=== PATIENT | female | born 1990 | race African-American/Black ===

== ENCOUNTER 2016-11-26 16:22 | Emergency (ER) | payer MEDICAID, OTHER ==
[~2016-11-26] VITALS: Ht 172.7 cm; Wt 77.6 kg
[~2016-11-26 16:22] MED LIST: IBUP-51 PO
--- NOTE | 2016-11-26 16:40 | NUR ---
DR. QUINTERO IS AT THE BEDSIDE.
--- NOTE | 2016-11-26 16:48 | NUR ---
PT STATED THAT SHE GAVE A URINE SAMPLE UPON ADMISSION TO ER.
--- NOTE | 2016-11-26 16:50 | NUR ---
CALLED LUMITE INJECTOR. NOT ABLE TO GET ANYONE. CALLED DRUPAL WEB DEVELOPER. LUMITE INJECTOR LEAVES AT 1600. DR. QUINTERO IS AWARE.
--- NOTE | 2016-11-26 16:54 | NUR ---
WEAVE DEFECT CHARTING CLERK NOTIFIED RE: BLOOD DRAW.
--- NOTE | 2016-11-26 16:56 | NUR ---
CALLED RADIOLOGY RE: US. US TECH AWARE.
[2016-11-26 18:13] LABS: BASOPHILS % (AUTO) 0.2 % (0.0-2.0); EOSINOPHILS # (AUTO) 0.1 /CMM (0.0-0.7); EOSINOPHILS % (AUTO) 1.1 % (0.0-6.0); HEMATOCRIT 32 % (33-45); HEMOGLOBIN 11.1 g/dL (11.5-14.8); LYMPHOCYTES % (AUTO) 25.3 % (20.0-44.0); MEAN CORPUSCULAR HEMOGLOBIN 32 PG (26.0-33.0); MEAN CORPUSCULAR HGB CONC 35 g/dl (31.0-36.0); MEAN CORPUSCULAR VOLUME 92 fL (82-100); MONOCYTES % (AUTO) 12.3 % (2.0-12.0); NEUTROPHILS # (AUTO) 4.8 /CMM (1.8-8.9); NEUTROPHILS % (AUTO) 61.1 % (43.0-81.0); PLATELET COUNT (AUTO) 177 /CMM (150-450); RDW COEFFICIENT OF VARIATION 12.3 (11.5-15.0); RED BLOOD CELL COUNT(AUTO) 3.49 MIL/uL (4.0-5.2); WHITE BLOOD COUNT (AUTO) 7.9 K/uL (4.3-11.0)
[2016-11-26 18:23] LABS: CALCIUM, SERUM 8.8 mg/dL (8.5-10.1); CREATININE 0.7 mg/dL (0.6-1.3); POTASSIUM 3.2 mmol/L (3.5-5.1)
--- NOTE | 2016-11-26 18:46 | NUR ---
URINE SAMPLE SENT TO LAB.
[2016-11-26 18:49] LABS: APPEARANCE,URINE Clear (CLEAR); BILIRUBIN,URINE Negative (NEGATIVE); BLOOD, URINE Negative Ery/uL (NEGATIVE); COLOR,URINE Yellow (YELLOW); KETONES,URINE Negative (NEGATIVE); LEUKOCYTE ESTERASE ,URINE Negative (NEGATIVE); NITRITE, URINE Negative (NEGATIVE); PH,URINE 6.5 (5.0-8.0); PROTEIN,URINE Negative (NEGATIVE); UGLUCOSE Negative (NEGATIVE)
[2016-11-26] MEDS ORDERED: POTASSIUM CHLORIDE 20 MEQ TAB.PRT.SR PO ONE ×2 (19:00→19:08)
--- NOTE | 2016-11-26 19:19 | NUR ---
Patient discharged to home in stable condition. Written and verbal after care instructions given. Patient verbalizes understanding of instruction. PT REC'D A COPY OF ALL LABS AND US FINDINGS. PT AMBULATED OUT WITH A STEADY GAIT. VSS.
[2016-11-26 19:21] VITALS: BP 121/65
== END 2016-11-26 19:27 | disposition home or self-care (01) ==
LOC: ER 16:25
DX: O99.011 Anemia complicating pregnancy, first trimester (principal); O99.281 Endocrine, nutritional and metabolic diseases complicating pregnancy, first trimester; E87.6 Hypokalemia; Z88.0 Allergy status to penicillin; Z3A.01 Less than 8 weeks gestation of pregnancy; Z59.0 Homelessness
CPT/HCPCS: 36415; 76805; 80048; 81001; 85025; 99285; A4606; Z7610; 81000-TC

== ENCOUNTER 2017-01-25 05:15 | Emergency (ER) | payer MEDICAID ==
[~2017-01-25] VITALS: Ht 165.1 cm; Wt 77.1 kg
--- NOTE | 2017-01-25 05:20 | NUR ---
To bed 21 a 26 yo female bib boyfriend and reported, "felt gush of fluid at 0245 with contractions now every 5-10mins." Patient is aaox3, vss. Breathing even and unlabored. First at 33 weeks aog per last poli results. Per patient, she doesnt have a regular OB but has been taking vitamins. Placed patient on vital signs monitoring. Labor watch done. Instructed patient proper breathing tecniques with contractions. Gowned. Initiated fidencio fairchild. Dr Babcock at bedside for eval.
--- NOTE | 2017-01-25 05:25 | NUR ---
PER DR. JARA, PT IS NOT 1 CM DILATED .
--- NOTE | 2017-01-25 05:48 | NUR ---
pt accepted by Dr Tabby Vega [facility] L&D
--- NOTE | 2017-01-25 05:50 | NUR ---
[facility] called for trasnport. ETA 20 min.
[2017-01-25 06:18] VITALS: BP 133/98
--- NOTE | 2017-01-25 06:29 | NUR ---
Report given to paramedics for transport. VSS. Patient remained aaox3. LFA g18 IV intact, no s/s of infiltration/infection.
== END 2017-01-25 06:33 | disposition short-term general hospital (02) ==
LOC: ER 05:18
DX: O42.913 Preterm premature rupture of membranes, unspecified as to length of time between rupture and onset of labor, third trimester (principal); Z59.0 Homelessness; Z88.0 Allergy status to penicillin; Z3A.00 Weeks of gestation of pregnancy not specified
CPT/HCPCS: 99285; A4606; Z7610

== ENCOUNTER 2018-01-15 19:49 | Emergency (ER) | payer MEDICAID, OTHER ==
[~2018-01-15] VITALS: Ht 170.2 cm; Wt 64.4 kg
[2018-01-15 20:15] VITALS: BP 116/71
== END 2018-01-15 21:03 | disposition home or self-care (01) ==
LOC: ER 19:55
DX: Z32.01 Encounter for pregnancy test, result positive (principal); Z88.0 Allergy status to penicillin; Z59.0 Homelessness
CPT/HCPCS: 84703-TC; A4606; Z7610

== ENCOUNTER 2018-02-05 22:01 | Emergency (ER) | payer OTHER ==
[~2018-02-05] VITALS: Ht 172.7 cm; Wt 63.5 kg
--- NOTE | 2018-02-05 22:33 | NUR ---
PT TO ER BED
--- NOTE | 2018-02-05 23:05 | NUR ---
BB SELF FROM HOME C/O SPOTTING X 2 DAYS. PT STATES SHE IS 14 WKS AND "NEEDS A ULTRASOUND". PT DENIES N/V/D. -DYSURIA. PT IS AAOX4. VSS. SKIN WNL. RESP EVEN AND UNLABORED. NO S/S OF ACUTE DISTRESS NOTED. PT PLACED ON MONITOR AND POX. PT SAFETY AND COMFORT MEASURES IN PLACE. AWAITING MD FOR EVAL.
--- NOTE | 2018-02-05 23:22 | NUR ---
PT TO RESTROOM TO GIVE URINE SAMPLE.
[2018-02-05 23:53] LABS: BASOPHILS % (AUTO) 0.4 % (0.0-2.0); EOSINOPHILS % (AUTO) 1.4 % (0.0-6.0); HEMATOCRIT 34 % (33-45); HEMOGLOBIN 11.9 g/dL (11.5-14.8); LYMPHOCYTES % (AUTO) 21.3 % (20.0-44.0); MEAN CORPUSCULAR HEMOGLOBIN 32 PG (26.0-33.0); MEAN CORPUSCULAR HGB CONC 35 g/dl (31.0-36.0); MEAN CORPUSCULAR VOLUME 92 fL (82-100); MONOCYTES # (AUTO) 0.7 /CMM (0.1-1.30); NEUTROPHILS # (AUTO) 6.3 /CMM (1.8-8.9); NEUTROPHILS % (AUTO) 68.9 % (43.0-81.0); PLATELET COUNT (AUTO) 263 /CMM (150-450); RDW COEFFICIENT OF VARIATION 12.6 (11.5-15.0); RED BLOOD CELL COUNT(AUTO) 3.75 MIL/uL (4.0-5.2); WHITE BLOOD COUNT (AUTO) 9.2 K/uL (4.3-11.0)
[2018-02-05 23:58] LABS: APPEARANCE,URINE CLEAR (CLEAR); BILIRUBIN,URINE NEGATIVE (NEGATIVE); BLOOD, URINE 2+ Ery/uL (NEGATIVE); COLOR,URINE YELLOW (YELLOW); KETONES,URINE NEGATIVE (NEGATIVE); LEUKOCYTE ESTERASE ,URINE TRACE (NEGATIVE); NITRITE, URINE NEGATIVE (NEGATIVE); PH,URINE 6.5 (5.0-8.0); PROTEIN,URINE NEGATIVE (NEGATIVE); UGLUCOSE NEGATIVE (NEGATIVE)
[2018-02-06 00:28] LABS: BACTERIA,URINE Few /HPF (None Seen); MUCUS,URINE Moderate /LPF (None Seen); SQUAMOUS EPITHELIAL CELL,UR Moderate /HPF (None Seen)
--- NOTE | 2018-02-06 01:35 | NUR ---
RECEIVED RHOGAM FROM LAB. MEDICATED PT WITH FULL DOSE OF RHOGAM SYRINGE PER MD'S ORDERS. WT Addendum: 02/06/18 at 0242 by REANNA RECEIVED RHOGAM FROM LAB. MEDICATED PT WITH FULL DOSE (300MCG) OF RHOGAM SYRINGE PER MD'S ORDERS. WT. VSS UPON ADMINISTRATION OF MEDICATION
--- NOTE | 2018-02-06 02:18 | NUR ---
Patient discharged to home in stable condition. Written and verbal after care instructions given. Patient verbalizes understanding of instruction. VSS UPON DISCHARGE
[2018-02-06 02:19] VITALS: BP 140/92
== END 2018-02-06 02:21 | disposition home or self-care (01) ==
LOC: ER 22:05
DX: O36.0920 Maternal care for other rhesus isoimmunization, second trimester, not applicable or unspecified (principal); O46.92 Antepartum hemorrhage, unspecified, second trimester; Z3A.14 14 weeks gestation of pregnancy; Z88.0 Allergy status to penicillin; Z59.0 Homelessness
CPT/HCPCS: 36415; 76856-TC; 81000-TC; 84702-TC; 85025-TC; A4606; P9016-BL; Z7610

== ENCOUNTER 2018-02-11 18:27 | Emergency (ER) | payer OTHER ==
[~2018-02-11] VITALS: Ht 172.7 cm; Wt 64.0 kg
[2018-02-11 18:30] VITALS: BP 134/77
[2018-02-11 19:05] LABS: BASOPHILS % (AUTO) 0.2 % (0.0-2.0); EOSINOPHILS % (AUTO) 1.6 % (0.0-6.0); HEMATOCRIT 33 % (33-45); HEMOGLOBIN 11.5 g/dL (11.5-14.8); LYMPHOCYTES # (AUTO) 1.8 /CMM (0.8-4.8); LYMPHOCYTES % (AUTO) 18.7 % (20.0-44.0); MEAN CORPUSCULAR HEMOGLOBIN 31 PG (26.0-33.0); MEAN CORPUSCULAR HGB CONC 35 g/dl (31.0-36.0); MEAN CORPUSCULAR VOLUME 91 fL (82-100); MONOCYTES # (AUTO) 0.8 /CMM (0.1-1.30); MONOCYTES % (AUTO) 8.6 % (2.0-12.0); NEUTROPHILS # (AUTO) 6.7 /CMM (1.8-8.9); NEUTROPHILS % (AUTO) 70.9 % (43.0-81.0); PLATELET COUNT (AUTO) 285 /CMM (150-450); RDW COEFFICIENT OF VARIATION 12.2 (11.5-15.0); RED BLOOD CELL COUNT(AUTO) 3.67 MIL/uL (4.0-5.2); WHITE BLOOD COUNT (AUTO) 9.5 K/uL (4.3-11.0)
--- NOTE | 2018-02-11 19:48 | NUR ---
PT UNABLE TO GIVE URINE SAMPLE AT THIS MOMENT.
--- NOTE | 2018-02-11 20:29 | NUR ---
Patient discharged to home in stable condition. Written and verbal after care instructions given. Patient verbalizes understanding of instruction. PT ambulatory with a steady gait VITAL SIGNS WITHIN NORMAL LIMITS.
== END 2018-02-11 20:28 | disposition home or self-care (01) ==
LOC: ER 18:28
DX: N93.9 Abnormal uterine and vaginal bleeding, unspecified (principal); F17.200 Nicotine dependence, unspecified, uncomplicated; Z98.890 Other specified postprocedural states; Z60.2 Problems related to living alone; Z88.0 Allergy status to penicillin
CPT/HCPCS: 36415; 76856-TC; 84702-TC; 85025-TC; A4606; Z7610

== ENCOUNTER 2018-02-13 08:35 | Emergency (ER) | payer OTHER ==
[~2018-02-13] VITALS: Ht 167.6 cm; Wt 60.8 kg
--- NOTE | 2018-02-13 09:20 | NUR ---
CANAL TENDER AT BEDSIDE FOR BLOOD DRAW.
[2018-02-13] MEDS ORDERED: IV NS 0.9% 1,000 ML BAG IV ONE (09:30)
[2018-02-13 09:39] LABS: BASOPHILS # (AUTO) 0.1 /CMM (0.0-0.2); EOSINOPHILS % (AUTO) 1.5 % (0.0-6.0); HEMATOCRIT 33 % (33-45); HEMOGLOBIN 11.4 g/dL (11.5-14.8); LYMPHOCYTES # (AUTO) 1.4 /CMM (0.8-4.8); LYMPHOCYTES % (AUTO) 13.3 % (20.0-44.0); MEAN CORPUSCULAR HEMOGLOBIN 32 PG (26.0-33.0); MEAN CORPUSCULAR HGB CONC 34 g/dl (31.0-36.0); MEAN CORPUSCULAR VOLUME 92 fL (82-100); MONOCYTES # (AUTO) 0.8 /CMM (0.1-1.30); MONOCYTES % (AUTO) 7.1 % (2.0-12.0); NEUTROPHILS # (AUTO) 8.4 /CMM (1.8-8.9); NEUTROPHILS % (AUTO) 77.1 % (43.0-81.0); PLATELET COUNT (AUTO) 260 /CMM (150-450); RDW COEFFICIENT OF VARIATION 12.8 (11.5-15.0); RED BLOOD CELL COUNT(AUTO) 3.58 MIL/uL (4.0-5.2); WHITE BLOOD COUNT (AUTO) 10.8 K/uL (4.3-11.0)
[2018-02-13 09:50] LABS: CALCIUM, SERUM 8.8 mg/dL (8.5-10.1); CREATININE 0.7 mg/dL (0.6-1.3); POTASSIUM 3.7 mmol/L (3.5-5.1)
--- NOTE | 2018-02-13 09:53 | NUR ---
Line started on L AC g 18, pt tolerated well pt medicated as ordered
[2018-02-13] MEDS ORDERED: ACETAMINOPHEN ES 500 MG TABLET ONE (11:06)
--- NOTE | 2018-02-13 11:13 | NUR ---
IV removed. Catheter intact and site benign. Pressure and 4x4 applied to site. No bleeding noted.
--- NOTE | 2018-02-13 11:13 | NUR ---
PT. VERBALIZED UNDERSTANDING OF AFTERCARE INSTRUCTIONS.Patient discharged to home in stable condition. Written and verbal after care instructions given. Patient verbalizes understanding of instruction.
[2018-02-13 11:14] VITALS: BP 149/73
[2018-02-13] MEDS ORDERED: ACETAMINOPHEN ES 500 MG TABLET PO ONE (11:30)
== END 2018-02-13 11:14 | disposition home or self-care (01) ==
LOC: ER 08:38
DX: O20.0 Threatened abortion (principal); F17.200 Nicotine dependence, unspecified, uncomplicated; Z88.0 Allergy status to penicillin; Z98.890 Other specified postprocedural states; Z60.2 Problems related to living alone
CPT/HCPCS: 36415; 76805; 80048; 84702; 85025; 85240; 99285; A4606; J7030; Z7610

== ENCOUNTER 2018-02-17 18:22 | Emergency (ER) | payer OTHER ==
[~2018-02-17] VITALS: Ht 162.6 cm; Wt 61.2 kg
--- NOTE | 2018-02-17 18:25 | NUR ---
[id number] FROM THE SIDEWALK, C/P LOW ABD PAIN, VAG BLEEDING; PT IS 15 WKS , A0. PATIENT IS A/OX4, BREATHING EVEN AND UNLABORED. NO SOB, NAD, VITALS STABLE. SAFETY AND COMFORT MEASURES IN PLACE. AWAITING MD ORDERS.
--- NOTE | 2018-02-17 19:06 | NUR ---
PATIENT NOTED WITH PRODUCT OF CONCEPTION FULLY EXPELLED FROM VAGINAL CANAL. PRODUCT OF CONCEPTION COLLECTED AND SENT TO LAB PER MD ORDERS. PATIENT REMAINS STABLE. WILL CONTINUE TO MONITOR.
--- NOTE | 2018-02-17 19:10 | NUR ---
NEW IV STARTED ON RAC, 18G.
[2018-02-17 19:28] LABS: BASOPHILS % (AUTO) 0.2 % (0.0-2.0); EOSINOPHILS % (AUTO) 0.7 % (0.0-6.0); HEMATOCRIT 29 % (33-45); HEMOGLOBIN 10.2 g/dL (11.5-14.8); LYMPHOCYTES # (AUTO) 1.5 /CMM (0.8-4.8); LYMPHOCYTES % (AUTO) 11.4 % (20.0-44.0); MEAN CORPUSCULAR HEMOGLOBIN 31 PG (26.0-33.0); MEAN CORPUSCULAR HGB CONC 35 g/dl (31.0-36.0); MEAN CORPUSCULAR VOLUME 90 fL (82-100); MONOCYTES # (AUTO) 1.8 /CMM (0.1-1.30); MONOCYTES % (AUTO) 13.5 % (2.0-12.0); NEUTROPHILS # (AUTO) 9.7 /CMM (1.8-8.9); NEUTROPHILS % (AUTO) 74.2 % (43.0-81.0); PLATELET COUNT (AUTO) 203 /CMM (150-450); RDW COEFFICIENT OF VARIATION 12.2 (11.5-15.0); RED BLOOD CELL COUNT(AUTO) 3.24 MIL/uL (4.0-5.2); WHITE BLOOD COUNT (AUTO) 13.1 K/uL (4.3-11.0)
[2018-02-17 19:44] LABS: CALCIUM, SERUM 8.8 mg/dL (8.5-10.1); CREATININE 0.7 mg/dL (0.6-1.3); POTASSIUM 3.6 mmol/L (3.5-5.1)
[2018-02-17] MEDS ORDERED: HYDROCODONE/APAP 5/325MG 1 EACH TABLET PO ONE (20:30)
[2018-02-17] MEDS ORDERED: HYDROCODONE/APAP 5/325MG 1 EACH TABLET ONE (20:40)
[2018-02-17 21:14] VITALS: BP 132/90
--- NOTE | 2018-02-17 21:17 | NUR ---
Patient discharged to home in stable condition. Written and verbal after care instructions given. Patient verbalizes understanding of instruction. PT INSTRUCTED NOT TO OPERATE OR DRIVE HEAVY MACHINERY. PT AMUBLATED WITH STEADY GAIT UPON DC.
== END 2018-02-17 21:44 | disposition home or self-care (01) ==
LOC: ER 18:26
DX: O03.9 Complete or unspecified spontaneous abortion without complication (principal); F17.200 Nicotine dependence, unspecified, uncomplicated; Z88.0 Allergy status to penicillin; Z60.2 Problems related to living alone
CPT/HCPCS: 36415; 80048; 85025; 85240; 99284; A4606; A6403; Z7610

== ENCOUNTER 2018-09-25 04:11 | Emergency (ER) | payer MEDICAID, OTHER ==
[~2018-09-25] VITALS: Ht 170.2 cm; Wt 65.8 kg
--- NOTE | 2018-09-25 04:35 | NUR ---
Pt came to emergency dept. complaining of 6/10 non radiating abd pain, nausea, vomitting, and diarrhea since yesterday. Pt states that her burps and flatulence smells like sulfur. Pt states the symptoms came after eating at [employer] last night. Pt AAXO4. Respirations even and unlabored. Pt put on the monitor and pending eval from ER MD.
--- NOTE | 2018-09-25 04:41 | NUR ---
Pt ambulatory with steady gait to bathroom. Urine sample obtained an sent to lab.
[2018-09-25] MEDS ORDERED: ONDANSETRON HCL/PF 4 MG/2 ML VIAL ONE (04:43)
[2018-09-25] MEDS ORDERED: ONDANSETRON HCL/PF 4 MG/2 ML VIAL IVP ONE (05:00)
[2018-09-25] MEDS ORDERED: IV NS 0.9% 1,000 ML BAG IV ONE (05:00)
[2018-09-25 05:03] LABS: APPEARANCE,URINE SL CLOUDY (CLEAR); BILIRUBIN,URINE NEGATIVE (NEGATIVE); BLOOD, URINE NEGATIVE Ery/uL (NEGATIVE); COLOR,URINE YELLOW (YELLOW); KETONES,URINE TRACE (NEGATIVE); LEUKOCYTE ESTERASE ,URINE NEGATIVE (NEGATIVE); NITRITE, URINE NEGATIVE (NEGATIVE); PROTEIN,URINE TRACE mg/dl (NEGATIVE); UGLUCOSE NEGATIVE (NEGATIVE); UROBILINOGEN,URINE 0.2 EU/dL (0.2)
[2018-09-25 05:30] VITALS: BP 123/83
--- NOTE | 2018-09-25 05:32 | NUR ---
Patient discharged to home in stable condition. Written and verbal after care instructions given. Patient verbalizes understanding of instruction. IV removed. Catheter intact and site benign. Pressure and 4x4 applied to site. No bleeding noted. Pt ambulatory with steady gait.
[2018-09-25 06:11] LABS: BACTERIA,URINE Few /HPF (None Seen); MUCUS,URINE Few /LPF (None Seen); RBC,URINE 0-2 /HPF (0-2); SQUAMOUS EPITHELIAL CELL,UR Few /HPF (None Seen)
== END 2018-09-25 05:34 | disposition home or self-care (01) ==
LOC: ER 04:12
DX: K52.9 Noninfective gastroenteritis and colitis, unspecified (principal); F17.210 Nicotine dependence, cigarettes, uncomplicated; Z88.0 Allergy status to penicillin; Z59.0 Homelessness
CPT/HCPCS: 81000-TC; 84703-TC; J2405; J7030

== ENCOUNTER 2019-01-28 09:39 | Emergency (ER) | payer OTHER ==
[~2019-01-28] VITALS: Ht 170.2 cm; Wt 73.9 kg
--- NOTE | 2019-01-28 09:45 | NUR ---
SEEN AND EXAMINED BY DR. MENON.
[2019-01-28 09:46] VITALS: BP 110/62
--- NOTE | 2019-01-28 09:46 | NUR ---
PT [id number]/PD IN CUSTODY C/O R ARM PAIN, R SIDE FACIAL ABRASIONS NOTED, PT IS AT BED CRYING, NOT IN RESPIRATORY DISTRESS, V/S STABLE, KEPT RESTED AND COMFORTABLE, WILL CONTINUE TO MONITOR.
[2019-01-28] MEDS ORDERED: LORAZEPAM INJ 2 MG/ML VIAL ONE (09:51)
[2019-01-28] MEDS: LORAZEPAM INJ 2 MG/ML VIAL IM ONE ×2 (09:55→10:12)
[2019-01-28] MEDS ORDERED: BACITRACIN ZINC OINT PACKET 1 EA PACKET TP ONE (10:00)
[2019-01-28] MEDS ORDERED: KETOROLAC TROMETHAMINE INJ 60 MG/2 ML VIAL IM ONE (10:00)
--- NOTE | 2019-01-28 10:00 | NUR ---
PERSONAL HEALTH COACH AT BEDSIDE FOR XRAY.
--- NOTE | 2019-01-28 10:21 | NUR ---
DCPatient discharged in custody in stable condition. Written and verbal after care instructions given. Patient verbalizes understanding of instruction.
== END 2019-01-28 10:25 ==
LOC: ER 09:43
DX: S50.01XA Contusion of right elbow, initial encounter (principal); S00.81XA Abrasion of other part of head, initial encounter; F41.9 Anxiety disorder, unspecified; F17.210 Nicotine dependence, cigarettes, uncomplicated; Z59.0 Homelessness; Z88.0 Allergy status to penicillin; Y08.89XA Assault by other specified means, initial encounter; Y93.89 Activity, other specified; Y92.89 Other specified places as the place of occurrence of the external cause; Y99.8 Other external cause status
CPT/HCPCS: 73060; 73090; 96372; 99283; J2060

== ENCOUNTER 2019-04-08 12:35 | Emergency (ER) | payer OTHER ==
[~2019-04-08] VITALS: Ht 172.7 cm; Wt 61.2 kg
--- NOTE | 2019-04-08 13:16 | NUR ---
PELVIC, GROIN AREA PAIN. STARTED YESTERDAY. -DYSURIA, ENDORSES VAG SPOTTING. STATES PAIN LEVEL OF 8/10 AND SHARP. HAS NAUSEA, DENIES VOMIT. NO OTHER MEDICAL COMPLAINTS AT THIS TIME. MADE COMFORTABLE AND READY FOR EVAL.
--- NOTE | 2019-04-08 13:20 | NUR ---
GEE PHILIP AT BEDSIDE FOR EVAL.
[2019-04-08] MEDS ORDERED: ONDANSETRON HCL/PF 4 MG/2 ML VIAL ONE (13:33)
[2019-04-08] MEDS ORDERED: MORPHINE SULFATE INJ 4 MG/ML DISP.SYRIN ONE (13:33)
--- NOTE | 2019-04-08 13:40 | NUR ---
IV LINE ESTABLISHED, BLOOD DRAWN AND SENT TO STAT LAB, MEDS GIVEN, IVF INFUSING.
[2019-04-08 13:45] LABS: BASOPHILS % (AUTO) 0.1 % (0.0-2.0); EOSINOPHILS % (AUTO) 0.1 % (0.0-6.0); HEMATOCRIT 39 % (33-45); HEMOGLOBIN 12.8 g/dL (11.5-14.8); LYMPHOCYTES # (AUTO) 0.4 /CMM (0.8-4.8); LYMPHOCYTES % (AUTO) 2.7 % (20.0-44.0); MEAN CORPUSCULAR HGB CONC 33 g/dl (31.0-36.0); MEAN CORPUSCULAR VOLUME 90 fL (82-100); MONOCYTES # (AUTO) 1.4 /CMM (0.1-1.30); MONOCYTES % (AUTO) 9.9 % (2.0-12.0); NEUTROPHILS # (AUTO) 12.1 /CMM (1.8-8.9); NEUTROPHILS % (AUTO) 87.2 % (43.0-81.0); PLATELET COUNT (AUTO) 267 /CMM (150-450); RED BLOOD CELL COUNT(AUTO) 4.35 MIL/uL (4.0-5.2); WHITE BLOOD COUNT (AUTO) 13.9 K/uL (4.3-11.0)
[2019-04-08] MEDS: IV NS 0.9% 1,000 ML BAG IV ONE (13:48)
[2019-04-08] MEDS: ONDANSETRON HCL/PF 4 MG/2 ML VIAL IVP ONE (13:48)
[2019-04-08] MEDS: MORPHINE SULFATE INJ 2 MG/ML DISP.SYRIN IV ONE (13:49)
[2019-04-08 13:52] LABS: CALCIUM, SERUM 8.5 mg/dL (8.5-10.1); CREATININE 0.9 mg/dL (0.6-1.3); POTASSIUM 3.3 mmol/L (3.5-5.1)
[2019-04-08 13:57] LABS: ALBUMIN 3.3 g/dL (3.4-5.0); BILIRUBIN,DIRECT 0.2 mg/dL (0.0-0.2); BILIRUBIN,TOTAL 0.8 mg/dL (0.2-1.0); TOTAL PROTEIN, SERUM 7.3 g/dL (6.4-8.2)
--- NOTE | 2019-04-08 14:20 | NUR ---
URINE COLLECTED AND SENT TO STAT LAB
[2019-04-08 14:28] LABS: BILIRUBIN,URINE Negative (NEGATIVE); BLOOD, URINE Small Ery/uL (NEGATIVE); COLOR,URINE Yellow (YELLOW); KETONES,URINE Negative (NEGATIVE); LEUKOCYTE ESTERASE ,URINE Negative (NEGATIVE); NITRITE, URINE Negative (NEGATIVE); PH,URINE 6.5 (5.0-8.0); PROTEIN,URINE Negative (NEGATIVE); UGLUCOSE Negative (NEGATIVE)
[2019-04-08 14:29] LABS: APPEARANCE,URINE Slightly Hazy (CLEAR)
[2019-04-08 14:35] LABS: BACTERIA,URINE Rare /HPF (None Seen); MUCUS,URINE Few /LPF (None Seen); SQUAMOUS EPITHELIAL CELL,UR Few /HPF (None Seen)
--- NOTE | 2019-04-08 14:35 | NUR ---
PT TAKEN TO CT VIA SANCHEZ
[2019-04-08] MEDS ORDERED: IOHEXOL-300 100 ML VIAL IV ONE (14:48)
[2019-04-08] MEDS ORDERED: CT SWABBABLE VALVE TRANS SET 1 EA INFUS.SET MC ONE (14:49)
--- NOTE | 2019-04-08 15:45 | NUR ---
IV removed. Catheter intact and site benign. Pressure and 4x4 applied to site. No bleeding noted.
--- NOTE | 2019-04-08 16:20 | NUR ---
Social service consult requested by [employer] for homelessness. Pt. came to [facility] complaining of inflammation in the groin area. SW met with pt. bedside. Pt. is alert and oriented x 3. Pt. had a sheet covering her mouth. Pt. informed SW that she does not need to speak to a social media marketing analyst and does not need any referrals or placement. SW updated pt' s RN Kaycee.
--- NOTE | 2019-04-08 16:23 | NUR ---
Patient discharged to home in stable condition. Written and verbal after care instructions given. Patient verbalizes understanding of instruction.
[2019-04-08 16:28] VITALS: BP 118/86
== END 2019-04-08 16:25 | disposition home or self-care (01) ==
LOC: ER 12:36
DX: L03.314 Cellulitis of groin (principal); R59.0 Localized enlarged lymph nodes; R10.31 Right lower quadrant pain; F15.20 Other stimulant dependence, uncomplicated; F17.210 Nicotine dependence, cigarettes, uncomplicated; Z88.0 Allergy status to penicillin; Z59.0 Homelessness
CPT/HCPCS: 36415; 74177; 80048; 80076; 81001; 84703; 85025; 96374; 96375; 99284; J2270; J2405; J7030; Q9967; 81000-TC

== ENCOUNTER → 2019-04-09 | Emergency (ER) | payer OTHER ==
[~2019-04-09] VITALS: Ht 172.7 cm; Wt 71.7 kg
--- NOTE | 2019-04-09 12:36 | NUR ---
BIBA for BLE cellulitis, was in the hospital 04/08/19, a/o x4, SR, v/s stable, no pain.
[2019-04-09] MEDS: VANCOMYCIN 1 GM in IV D5W 250 ML IV ONE (13:15)
[2019-04-09 15:27] VITALS: BP 122/82
== END | disposition home or self-care (01) ==
LOC: ER 12:01
DX: M25.551 Pain in right hip (principal); F15.10 Other stimulant abuse, uncomplicated; F17.210 Nicotine dependence, cigarettes, uncomplicated; Z88.0 Allergy status to penicillin; Z59.0 Homelessness
CPT/HCPCS: 96365; 99283; A6403; A6407; J3370; J7060

== ENCOUNTER 2019-04-10 11:52 | Emergency (ER) | payer OTHER ==
[~2019-04-10] VITALS: Ht 170.2 cm; Wt 61.2 kg
[2019-04-10 12:49] VITALS: BP 101/68
[2019-04-10] MEDS ORDERED: HYDROCODONE/APAP 5/325MG 1 EACH TABLET ONE (12:59)
[2019-04-10] MEDS ORDERED: HYDROCODONE/APAP 5/325MG 1 EACH TABLET PO ONE (13:00)
== END 2019-04-10 13:17 | disposition home or self-care (01) ==
LOC: ER 11:56
DX: L03.115 Cellulitis of right lower limb (principal); F15.10 Other stimulant abuse, uncomplicated; F17.210 Nicotine dependence, cigarettes, uncomplicated; Z88.0 Allergy status to penicillin; Z59.0 Homelessness

== ENCOUNTER 2019-05-02 07:22 | Emergency (ER) | payer OTHER ==
[~2019-05-02] VITALS: Ht 172.7 cm; Wt 63.5 kg
[2019-05-02 07:31] VITALS: BP 134/90
[2019-05-02] MEDS ORDERED: FLUORESCEIN SODIUM OPHTH 1 EA STRIP ONE (07:38)
[2019-05-02] MEDS ORDERED: ACETAMINOPHEN ES 500 MG TABLET ONE (07:42)
[2019-05-02] MEDS ORDERED: TETRACAINE HCL 0.5% OPHTALMIC 15 ML BOTTLE OP ONE (08:00)
[2019-05-02] MEDS ORDERED: FLUORESCEIN SODIUM OPHTH 1 EA STRIP OP ONE (08:00)
[2019-05-02] MEDS ORDERED: ACETAMINOPHEN ES 500 MG TABLET PO ONE (08:00)
--- NOTE | 2019-05-02 08:08 | NUR ---
PT WALKED INTO EMERGENCY ROOM FOR C/C OF LEFT EYE REDNESS PT SEEN BY md AND GIVEN PRESCRIPTION WITH AFTER CARE INSTRUCTION PT ALSO GIVEN MEAL TRAY PT DRESSED APPROPRIATELY AND DISCHARGE.
== END 2019-05-02 08:15 | disposition home or self-care (01) ==
LOC: ER 07:26
DX: H10.89 Other conjunctivitis (principal); F17.210 Nicotine dependence, cigarettes, uncomplicated; Z88.0 Allergy status to penicillin; Z59.0 Homelessness